=== PATIENT | male | born 1955 | race Caucasian/White ===

== ENCOUNTER 2017-08-29 17:30 | Emergency (ER) | payer MEDICAID ==
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
[2017-08-29] MEDS ORDERED: NS 1,000 ML IV ONE (18:07)
[2017-08-29] MEDS ORDERED: fentaNYL 100 MCG/2 ML INJ IVP ONE (18:07)
[2017-08-29] MEDS ORDERED: ONDANSETRON 4 MG/2 ML VIAL IVP ONE (18:07)
[2017-08-29 18:21] LABS: PLATELET COUNT 152 10^3/uL (150-400)
[2017-08-29] MEDS ORDERED: IOPAMIDOL (ISOVUE-300) 100 ML BTL ONE (18:42)
[2017-08-29] MEDS ORDERED: VANCOMYCIN HCL/NORMAL SALINE 250 ML IV ONE (19:27)
--- NOTE | 2017-08-29 19:32 | CPEKG ---
Heart Rate: 124 RR Interval: 484 QRSD Interval: 94 QT Interval: 336 QTC Interval: 483 QRS [place]: -2 T Wave [place]: 93 EKG Severity - ABNORMAL ECG - EKG Impression: ATRIAL FIBRILLATION, V-RATE 90-167 EKG Impression: BORDERLINE T ABNORMALITIES, ANT-LAT LEADS EKG Impression: BORDERLINE PROLONGED QT INTERVAL Electronically Signed By: Mary Bunch 30-Aug-2017 22:41:44
[2017-08-29] MEDS ORDERED: DEXAMETHASONE 10 MG/ML VIAL IVP ONE (20:00)
[2017-08-29] MEDS ORDERED: MANNITOL 20% 50 GM/250 ML BAG IV ONE (20:01)
[2017-08-29] MEDS ORDERED: PROPARACAINE 0.5% 15 ML OPHT DROP ONE (20:03)
[2017-08-29] MEDS ORDERED: DEXAMETHASONE 10 MG/ML VIAL ONE (20:13)
[2017-08-29] MEDS ORDERED: HYDROmorphONE/DILAUDID 2 MG/ML INJ IVP PRN (20:14)
[2017-08-29] MEDS ORDERED: HYDROmorphONE/DILAUDID 1 MG/ML INJ ONE (20:17)
[2017-08-29] MEDS ORDERED: fentaNYL 100 MCG/2 ML INJ ONE (20:53)
[2017-08-29] MEDS ORDERED: MIDAZOLAM 2 MG/2 ML VIAL ONE (20:55)
[2017-08-29] MEDS ORDERED: MANNITOL 20% 100 GM/500 ML BAG IV ONE (21:00)
[2017-08-29 22:27] VITALS: BP 143/89
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
== END 2017-08-29 22:27 | disposition short-term general hospital (02) ==
LOC: UNDOADMIN 19:37
DX: J01.00 Acute maxillary sinusitis, unspecified (principal); H05.011 Cellulitis of right orbit; J44.9 Chronic obstructive pulmonary disease, unspecified; E86.9 Volume depletion, unspecified; Z79.82 Long term (current) use of aspirin
CPT/HCPCS: 84484-PO; 96365; J0696; J1100; J1170; J2250; J2405; J3010; J3370; Q9967